=== PATIENT | female | born 1950 | race African-American/Black ===

== ENCOUNTER 2017-09-17 14:24 | Emergency (ER) | payer BC ==
[~2017-09-17] VITALS: Ht 170.2 cm; Wt 106.0 kg
[2017-09-17 15:49] LABS: EOSINOPHILS % 3.7 % (0.0-5.0); HEMATOCRIT. 39.9 % (36.0-48.0); HEMOGLOBIN. 13.7 g/dL (12.0-16.0); LYMPHOCYTES % 26.6 % (20.0-50.0); MEAN CORPUSCULAR HEMOGLOBIN 30.4 pg (28.0-32.0); MEAN CORPUSCULAR VOLUME 88.5 fL (81.0-99.0); MEAN PLATELET VOLUME 7.6 fl (7.4-10.4); MONOCYTES % 5.2 % (2.0-8.0); NEUTROPHILS % 63.5 % (40.0-76.0); PLATELET 385 x1000/uL (130-400); RED BLOOD CELL COUNT 4.51 mill/uL (4.2-5.4); RED CELL DISTRIBUTION WIDTH 14.5 % (11.6-14.6)
[2017-09-17 15:55] LABS: CHLORIDE 102 mEq/L (98-107)
[2017-09-17 15:56] LABS: INR 1.1
[2017-09-17 17:47] LABS: HEPATITIS B SURFACE ANTIGEN NEGATIVE
[2017-09-17 18:16] LABS: HEPATITIS B CORE AB IGM NEGATIVE
[2017-09-17 18:17] LABS: HEPATITIS A AB IGM NEGATIVE (NEGATIVE)
[2017-09-17 19:57] LABS: CLARITY URINE CLEAR (CLEAR); COLOR URINE YELLOW (YELLOW); KETONES URINE NEGATIVE (NEGATIVE); LEUKOCYTE ESTERASE URINE 1+ (NEGATIVE); NITRITE URINE NEGATIVE (NEGATIVE); OCCULT BLOOD URINE NEGATIVE (NEGATIVE); PH URINE 6.5 (4.5-8.0); PROTEIN URINE NEGATIVE (NEGATIVE); SPECIFIC GRAVITY URINE 1.012 (1.005-1.030); UROBILINOGEN URINE 0.2 E.U./dL (0.2-1.0)
[2017-09-17 20:09] LABS: *AMPHETAMINES SCREEN URINE NEGATIVE (NEGATIVE); *BARBITURATES SCREEN URINE NEGATIVE (NEGATIVE); *BENZODIAZEPINES SCREEN URINE NEGATIVE (NEGATIVE); *COCAINE SCREEN URINE NEGATIVE (NEGATIVE); METHADONE URINE SCREEN NEGATIVE (NEGATIVE); OPIATES URINE SCREEN NEGATIVE (NEGATIVE); PHENCYCLIDINE URINE SCREEN NEGATIVE (NEGATIVE)
[2017-09-17 20:10] LABS: CANNABINOID URINE SCREEN NEGATIVE (NEGATIVE)
[2017-09-17] MEDS ORDERED: LISINOPRIL 10MG TABLET PO ONE (20:45)
[2017-09-17] MEDS ORDERED: AMOXICILLIN 500 MG CAPSULE PO ONE (20:45)
[2017-09-17 21:13] VITALS: BP 147/77
== END 2017-09-17 21:13 | disposition home or self-care (01) ==
LOC: ER 14:24
DX: J32.9 Chronic sinusitis, unspecified (principal); I10 Essential (primary) hypertension; R42 Dizziness and giddiness; R82.71 Bacteriuria; R26.81 Unsteadiness on feet; I50.9 Heart failure, unspecified; I11.0 Hypertensive heart disease with heart failure; Z88.5 Allergy status to narcotic agent; Z95.820 Peripheral vascular angioplasty status with implants and grafts
CPT/HCPCS: 36415; 70450; 71045; 80053; 80305; 81003; 83036; 83735; 83880; 84484; 85025; 85610; 86705; 86709; 86803; 87340; 93005; 99285

== ENCOUNTER 2017-09-24 17:08 | Emergency (ER) | payer BC ==
[~2017-09-24] VITALS: Ht 170.2 cm; Wt 97.0 kg
[2017-09-25] MEDS ORDERED: IBUPROFEN 800MG TABLET PO ONE
[2017-09-25] MEDS ORDERED: CEFTRIAXONE SODIUM 500 MG/VIAL IM ONE (02:00)
[2017-09-25] MEDS ORDERED: LIDOCAINE HCL 1% 20ML VIAL (Pyxis) INJ INFIL ONE (02:00)
[2017-09-25] MEDS ORDERED: LIDOCAINE HCL/PF 1% 10 MG/ML 5ML VIAL IJ NR (02:15)
[2017-09-25 02:35] VITALS: BP 171/99
== END 2017-09-25 02:40 | disposition home or self-care (01) ==
LOC: ER 17:28
DX: J32.0 Chronic maxillary sinusitis (principal); J32.1 Chronic frontal sinusitis; J32.2 Chronic ethmoidal sinusitis; I11.0 Hypertensive heart disease with heart failure; I50.9 Heart failure, unspecified; Z88.5 Allergy status to narcotic agent; Z95.5 Presence of coronary angioplasty implant and graft; Z90.710 Acquired absence of both cervix and uterus
CPT/HCPCS: 70486; 96372; 99284; J0696; J3490; Z7610